=== PATIENT | male | born 1995 | race Caucasian/White ===

== ENCOUNTER 2017-10-15 01:34 | Emergency (ER) | payer SELFPAY ==
[~2017-10-15] VITALS: Ht 172.7 cm; Wt 56.8 kg
[2017-10-15 01:35] VITALS: BP 154/81
== END 2017-10-15 01:59 | disposition left against medical advice (07) ==
LOC: EMS 01:35
DX: T78.40XA Allergy, unspecified, initial encounter (principal); Z53.21 Procedure and treatment not carried out due to patient leaving prior to being seen by health care provider